=== PATIENT | male | born 2000 | race Caucasian/White ===

== ENCOUNTER 2021-08-13 00:38 | Emergency (ER) | payer OTHER ==
[~2021-08-13] VITALS: Ht 177.8 cm; Wt 86.2 kg
[2021-08-13] MEDS ORDERED: DESCOVY 200-251 EACH PO (00:46)
[2021-08-13 01:09] LABS: ABSOLUTE LYMPHOCYTES 1.8 thou/uL (0.8-5.3); ABSOLUTE MONOCYTES 0.5 thou/uL (0.0-1.2); BASOPHILS 0.4 %; EOSINOPHILS 0.5 %; HEMATOCRIT 42.7 % (42.0-52.0); HEMOGLOBIN 14.4 gm/dL (14.0-18.0); LYMPHOCYTES 24.4 %; MCH 30.1 pg (26.0-34.0); MCHC 33.6 g/dL (28.0-37.0); MCV 89.4 fL (80.0-100.0); MONOCYTES 6.7 %; NUCLEATED RBCS 0 /100WBC; PLATELET COUNT* 290 thou/uL (150-400); RBC 4.78 mil/uL (4.50-6.00); RDW-CV 14.2 % (10.5-14.5); WBC 7.4 thou/uL (4.0-11.0)
[2021-08-13 01:17] LABS: ALCOHOL < 10 mg/dL (<10); CALCIUM 8.7 mg/dL (8.5-10.1); CREATININE 1.1 mg/dL (0.6-1.3); POTASSIUM 3.6 mmol/L (3.5-5.1); SALICYLATE < 2.8 mg/dL (2.8-20.0)
[2021-08-13 01:18] LABS: ACETAMINOPHEN < 2 ug/mL (10-30)
[2021-08-13 01:21] LABS: ALBUMIN 4.3 g/dL (3.4-5.0); TOTAL BILIRUBIN 0.6 mg/dL (<0.1-1.0)
[2021-08-13 01:27] LABS: AMP/METHAMP Negative (Negative); BARBITURATES Negative (Negative); BENZODIAZEPINES Negative (Negative); COCAINE Negative (Negative); METHADONE Negative (Negative); OPIATES Negative (Negative); PCP Negative (Negative); THC Negative (Negative)
[2021-08-13 04:10] VITALS: BP 125/69
--- NOTE | 2021-08-13 10:26 | EKG ---
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 08/13/21 1026 0049 0049 Gurmeet Delgado MD, FAC /EPI
== END 2021-08-13 04:10 | disposition home or self-care (01) ==
LOC: M.ERS 00:38
PROVIDERS: Emergency Medicine
DX: T43.592A Poisoning by other antipsychotics and neuroleptics, intentional self-harm, initial encounter (principal); Z20.822 Contact with and (suspected) exposure to COVID-19; Y92.89 Other specified places as the place of occurrence of the external cause

== ENCOUNTER 2021-08-20 22:25 | Inpatient (IN) | payer OTHER ==
[~2021-08-20] VITALS: Ht 182.9 cm; Wt 113.4 kg
[~2021-08-20 22:25] MED LIST: DESCOVY 200-251 EACH PO
[2021-08-20 22:27] VITALS: BP 150/74
[2021-08-20 22:49] LABS: ABSOLUTE BASOPHILS 0.1 thou/uL (0.0-0.2); ABSOLUTE EOSINOPHILS 0.1 thou/uL (0.0-0.7); ABSOLUTE LYMPHOCYTES 1.4 thou/uL (0.8-5.3); ABSOLUTE MONOCYTES 0.6 thou/uL (0.0-1.2); ABSOLUTE NEUTROPHILS 7.1 thou/uL (1.6-8.1); BASOPHILS 0.6 %; EOSINOPHILS 0.6 %; HEMATOCRIT 45.5 % (42.0-52.0); HEMOGLOBIN 15.5 gm/dL (14.0-18.0); LYMPHOCYTES 15.6 %; MCH 30.6 pg (26.0-34.0); MCV 90.1 fL (80.0-100.0); MONOCYTES 6.6 %; MPV 7.8 fl. (7.2-11.1); NUCLEATED RBCS 0 /100WBC; PLATELET COUNT* 287 thou/uL (150-400); POLYS 76.6 %; RBC 5.05 mil/uL (4.50-6.00); RDW-CV 14.1 % (10.5-14.5); WBC 9.2 thou/uL (4.0-11.0)
--- NOTE | 2021-08-20 22:55 | NUR ---
PER MOM, PT EXHIBITS INEFFECTIVE COPING R/T RECENT LOSS OF AUNT TO CYNDY SEVERAL WEEKS AGO. MOM STATED PT CALLED HIM ON THE PHONE & STATED HE WAS HAVING DIFFICULTIES COPING & THAT HE JUST WANT TO SLEEP. MOM STATES SHE WITNESSED HIM DRINKING A LARGE GLASS OF WHISKEY BUT DID NOT SEE HIM TAKE AN UNKNOWN AMOUNT OF PILLS. WILL CONTINUE TO MONITOR PT
[2021-08-20 22:58] LABS: CALCIUM 9.4 mg/dL (8.5-10.1); CREATININE 1.1 mg/dL (0.6-1.3); POTASSIUM 3.6 mmol/L (3.5-5.1)
[2021-08-20 23:02] LABS: ALBUMIN 4.6 g/dL (3.4-5.0); TOTAL BILIRUBIN 0.6 mg/dL (<0.1-1.0); TOTAL PROTEIN 8.7 g/dL (6.4-8.2)
[2021-08-20 23:07] LABS: ALCOHOL < 10 mg/dL (<10); SALICYLATE < 2.8 mg/dL (2.8-20.0)
[2021-08-20 23:12] LABS: ACETAMINOPHEN < 2 ug/mL (10-30)
[2021-08-21] LABS: pH 7.429 (7.340-7.450)
[2021-08-21 04:58] LABS: URINE BILIRUBIN NEGATIVE (Negative); URINE BLOOD NEGATIVE (Negative); URINE CLARITY CLEAR; URINE COLOR YELLOW; URINE GLUCOSE-RANDOM NEGATIVE (Negative); URINE KETONES NEGATIVE (Negative); URINE LEUKOCYTES-REFLEX NEGATIVE (Negative); URINE NITRITE-REFLEX NEGATIVE (Negative); URINE PROTEIN NEGATIVE (Negative); URINE UROBILINOGEN 0.2 E.U./dl (0.2-1.0)
[2021-08-21 05:22] LABS: AMP/METHAMP Negative (Negative); BARBITURATES Negative (Negative); BENZODIAZEPINES Negative (Negative); COCAINE Negative (Negative); METHADONE Negative (Negative); OPIATES Negative (Negative); PCP Negative (Negative); THC POSITIVE (Negative)
[2021-08-21 10:00] VITALS: BP 127/70
[2021-08-21 14:00] VITALS: BP 127/70
--- NOTE | 2021-08-21 16:09 | EKG ---
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: DOMO : 2000 Requested By: Elizabeth Mars Order Number: [id number] MD: Rahat Mckee Measurements Intervals [place] Rate: 140 P: 70 MT: 135 QRS: 53 QRSD: 85 T: 42 QT: 380 QTc: 580 Interpretive Statements Sinus tachycardia Prolonged QT interval Baseline wander in lead(s) I,III,aVR,aVL,aVF,V1,V2,V3,V4,V5,V6 Compared to ECG 08/13/2021 00:49:31 rate has increased Electronically Signed On 08-21-2021 16:09:40 CDT by Rahat Mckee [email or web address] <ELECTRONICALLY SIGNED> By: Rahat Mckee MD, [facility] 08/21/21 1609 27 27 Rahat Mckee MD, [facility] /EPI
--- NOTE | 2021-08-21 19:28 | NUR ---
GAVE REPORT TO TELE PSYCH PHYSICIAN, DR. ZACARIAS
[2021-08-21 20:00] VITALS: BP 138/65
[2021-08-22] VITALS: BP 137/84
--- NOTE | 2021-08-22 01:01 | NUR ---
PATIENT BECAME AGITATED, ASKED FOR SOMETHING TO HELP HIM "CALM DOWN". PATIENT PUSHED DOOR CLOSED WITH HIS HAND, WOULD NOT LET STAFF ENTER THE ROOM. PATIENT WAS ABLE TO BE REDIRECTED BY STAFF BACK INTO THE BED. SECURITY CALLED FOR SAFETY THEY DID NOT HAVE TO INTERVENE. HOSPITALIST PAGED FOR PRN MEDICATION FOR ANXIETY.
[2021-08-22 03:48] LABS: MCH 30.2 pg (26.0-34.0); MCHC 33.6 g/dL (28.0-37.0); MCV 89.9 fL (80.0-100.0); RBC 4.45 mil/uL (4.50-6.00); WBC 10.6 thou/uL (4.0-11.0)
[2021-08-22 03:51] LABS: CALCIUM 8.5 mg/dL (8.5-10.1); CREATININE 0.9 mg/dL (0.6-1.3); POTASSIUM 3.8 mmol/L (3.5-5.1)
[2021-08-22 03:57] LABS: HEMOGLOBIN 13.4 gm/dL (14.0-18.0)
[2021-08-22 04:00] VITALS: BP 132/68
[2021-08-22 09:00] VITALS: BP 125/65
[2021-08-22 13:20] VITALS: BP 125/64
--- NOTE | 2021-08-22 14:05 | NUR ---
FAXED REFERRAL PACKET TO [facility], [facility], [facility]. [facility], [facility], TO CONTINUE TO FOLLOW FOR SAFE D/C PLANNING.
--- NOTE | 2021-08-22 15:09 | NUR ---
PT ACCEPTED AT [facility] BY DR GEOFFREY ALLRED AT 1445.
[2021-08-22 17:50] VITALS: BP 131/66
== END 2021-08-22 17:50 | DRG 917 ==
LOC: M.ERS 22:25 → M.TBA-ER 08-21 06:04
PROVIDERS: Emergency Medicine; Family Medicine; ADMIT Internal Medicine; ATTEND Internal Medicine
DX: T45.0X2A Poisoning by antiallergic and antiemetic drugs, intentional self-harm, initial encounter (principal); G92.8 Other toxic encephalopathy; R45.851 Suicidal ideations; Y92.89 Other specified places as the place of occurrence of the external cause; Z20.822 Contact with and (suspected) exposure to COVID-19; F12.10 Cannabis abuse, uncomplicated